=== PATIENT | male | born 1995 ===

== ENCOUNTER 2017-01-03 18:59 | Emergency (ER) | payer SELFPAY ==
--- NOTE | 2017-01-03 21:06 | Emergency Department Report ---
- General Chief complaint: Wound/Laceration Stated complaint: RT HAND LACERATION Time Seen by Provider: 01/03/17 21:05 Source: patient, family Mode of arrival: Ambulatory Limitations: No Limitations - History of Present Illness Initial comments: Patient here states he agrees that received a puncture wound to his right hand between his thumb and second finger from a kitchen appliance. He reports bleeding he controls with dressing. Reports pain 10 out of 10 laceration site. He reports he pulled object out and there was no part of object broken off. Denies numbness or tingling. Denies any radiation of pain to his wrist forearm or arm. When asked, he is able to move all his fingers without any difficulties. He is with his mom and the boat report tetanus shot is up-to- date less than 5 years. MD complaint: laceration -: This evening Tetanus Up to Date: yes Location: R hand Severity: severe Severity scale (0 -10): 10 Quality: stabbing Consistency: intermittent Improves with: immobilization Worsens with: palpation, movement Context: other (accidental injury) Associated symptoms: athralgias Treatments Prior to Arrival: bandages - Related Data Previous Rx's Medication Instructions Recorded Last Taken Type Acetaminophen/Codeine [Tylenol #3] 1 tab PO Q6H PRN #14 tab 01/03/17 Unknown Rx Cephalexin [Keflex] 500 mg PO Q8HR #15 cap 01/03/17 Unknown Rx Ibuprofen [Motrin] 600 mg PO Q8H PRN #15 tablet 01/03/17 Unknown Rx Allergies Allergy/AdvReac Type Severity Reaction Status Date / Time No Known Allergies Allergy Unverified 01/03/17 19:07 Abscess Boil HPI - HPI Chief Complaint: Wound/Laceration Stated Complaint: RT HAND LACERATION Time Seen by Provider: 01/03/17 21:05 Home Medications: Previous Rx's Medication Instructions Recorded Last Taken Type Acetaminophen/Codeine [Tylenol #3] 1 tab PO Q6H PRN #14 tab 01/03/17 Unknown Rx Cephalexin [Keflex] 500 mg PO Q8HR #15 cap 01/03/17 Unknown Rx Ibuprofen [Motrin] 600 mg PO Q8H PRN #15 tablet 01/03/17 Unknown Rx Allergies/Adverse Reactions: Allergies Allergy/AdvReac Type Severity Reaction Status Date / Time No Known Allergies Allergy Unverified 01/03/17 19:07 ED Review of Systems ROS: Stated complaint: RT HAND LACERATION Other details as noted in HPI Comment: All other systems reviewed and negative Constitutional: denies: chills, fever Respiratory: no symptoms reported Cardiovascular: denies: chest pain, palpitations, edema, syncope Gastrointestinal: denies: nausea, vomiting Musculoskeletal: arthralgia. denies: back pain Skin: other (laceration). denies: rash Neurological: denies: headache, weakness, numbness, paresthesias, confusion, abnormal gait, vertigo ED Past Medical Hx - Past Medical History Previous Medical History?: No Hx Asthma: Yes - Surgical History Past Surgical History?: No - Social History Smoking Status: Never Smoker Substance Use Type: None - Medications Home Medications: Home Medications Medication Instructions Recorded Confirmed Last Taken Type Acetaminophen/Codeine [Tylenol #3] 1 tab PO Q6H PRN #14 tab 01/03/17 Unknown Rx Cephalexin [Keflex] 500 mg PO Q8HR #15 cap 01/03/17 Unknown Rx Ibuprofen [Motrin] 600 mg PO Q8H PRN #15 tablet 01/03/17 Unknown Rx ED Physical Exam - General Limitations: No Limitations ED Course Vital Signs 01/03/17 01/03/17 19:03 21:43 Temperature 98.2 F Pulse Rate 69 Respiratory 20 20 Rate Blood Pressure 113/70 O2 Sat by Pulse 100 Oximetry - Laceration /Wound Repair Right Palm Hand Wound Location: upper extremity (right hand between first and second digit.) Wound Length (cm): 2 Wound's Depth, Shape: into muscle, irregular Wound Explored: clean Irrigated w/ Saline (ccs): 250 Betadine Prep?: Yes Anesthesia: 0.5% Sensorcaine Volume Anesthetic (ccs): 12 Wound Debrided: extensive Wound Repaired With: sutures Suture Size/Type: 4:0 (Ethilon) Number of Sutures: 11 Layer Closure?: Yes Deep Layer Suture Size/Type: 5:0, gut, chromic Number Deep Layer Sutures: 2 Sterile Dressing Applied?: Yes (bulky dressing) Critical care attestation.: If time is entered above; I have spent that time in minutes in the direct care of this critically ill patient, excluding procedure time. ED Disposition Clinical Impression: Laceration of right hand without complication, excluding fingers Qualifiers: Encounter type: initial encounter Qualified Code(s): S61.411A - Laceration without foreign body of right hand, initial encounter Injury of right hand Qualifiers: Encounter type: initial encounter Qualified Code(s): S69.91XA - Unspecified injury of right wrist, hand and finger(s), initial encounter Disposition: DISCHARGED TO HOME OR SELFCARE Is pt being admited?: No Does the pt Need Aspirin: No Condition: Stable Instructions: Laceration (ED), Suture Care (ED), Absorbable Suture Care (ED) Additional Instructions: Please return to the emergency room and 7 days to have her stitches removed. Please take antibiotic as prescribed. You can remove dry bulky dressing in 48 hours refrain from strenuous activity see her right hand. If you develop, increased pain, redness, swelling, fever and/or chills or pain extending to her wrist and forearm contusion return to emergency room [facility] Prescriptions: Acetaminophen/Codeine [Tylenol #3] 1 tab PO Q6H PRN #14 tab PRN Reason: Pain Cephalexin [Keflex] 500 mg PO Q8HR #15 cap Ibuprofen [Motrin] 600 mg PO Q8H PRN #15 tablet PRN Reason: Pain Referrals: [facility] [Outside] - 3-5 Days Forms: Accompanied Note, Work/School Release Form(ED)
[2017-01-03] MEDS ORDERED: MARCAINE 0.5% INFILTRATI ONE (21:23)
[2017-01-03] MEDS ORDERED: NACL 0.9% IR ONE (21:23)
[2017-01-03] MEDS ORDERED: NORCO 5/325 PO ONE (21:23)
[2017-01-03 22:51] VITALS: BP 111/69
== END 2017-01-03 22:52 | disposition home or self-care (01) ==
LOC: ED 18:59
DX: S61.411A Laceration without foreign body of right hand, initial encounter (principal); J45.909 Unspecified asthma, uncomplicated; W45.8XXA Other foreign body or object entering through skin, initial encounter; Y93.89 Activity, other specified; Y99.8 Other external cause status; Y92.89 Other specified places as the place of occurrence of the external cause

== ENCOUNTER 2017-01-11 19:49 | Emergency (ER) | payer SELFPAY ==
[2017-01-11 20:42] VITALS: BP 125/89
--- NOTE | 2017-01-11 23:04 | Emergency Department Report ---
HPI - General Chief Complaint: Laceration/Recheck/Suture Time Seen by Provider: 01/11/17 22:57 ED Past Medical Hx - Past Medical History Previous Medical History?: Yes Hx Asthma: Yes - Surgical History Past Surgical History?: No - Social History Smoking Status: Never Smoker Substance Use Type: None - Medications Home Medications: Home Medications Medication Instructions Recorded Confirmed Last Taken Type Acetaminophen/Codeine [Tylenol #3] 1 tab PO Q6H PRN #14 tab 01/03/17 Unknown Rx Cephalexin [Keflex] 500 mg PO Q8HR #15 cap 01/03/17 Unknown Rx Ibuprofen [Motrin] 600 mg PO Q8H PRN #15 tablet 01/03/17 Unknown Rx ED Review of Systems ROS: Stated complaint: GAUZE CHANGE Other details as noted in HPI Physical Exam - Physical Exam Vital Signs: Vital Signs 01/11/17 20:39 Temperature 98.4 F Pulse Rate 60 Respiratory 18 Rate Blood Pressure 125/89 O2 Sat by Pulse 99 Oximetry ED Course Vital Signs 01/11/17 20:39 Temperature 98.4 F Pulse Rate 60 Respiratory 18 Rate Blood Pressure 125/89 O2 Sat by Pulse 99 Oximetry Critical care attestation.: If time is entered above; I have spent that time in minutes in the direct care of this critically ill patient, excluding procedure time. ED Disposition Condition: Stable
[2017-01-11] MEDS ORDERED: TRIPLE ANTIBIOTIC TP ONE (23:39)
[2017-01-11] MEDS ORDERED: MOTRIN PO ONE (23:40)
--- NOTE | 2017-01-11 23:45 | Emergency Department Report ---
HPI - General Chief Complaint: Laceration/Recheck/Suture Time Seen by Provider: 01/11/17 22:57 - HPI HPI: 21-year-old male presents with suture to have his sutures looked at and redressed. Patient is also complaining of pain and discharge and blood in his urine 2 weeks. Patient states about a month ago he had unprotected intercourse with a girl a girl. Patient states since then he started to feel some discharge but has not been checked. Patient states he's been having processes looking discharge as well as painful urination. Patient denies penile pain scrotum pain, fever, chills, nausea, vomiting, abdominal pain or any problems. ED Past Medical Hx - Past Medical History Previous Medical History?: Yes Hx Asthma: Yes - Surgical History Past Surgical History?: No - Social History Smoking Status: Never Smoker Substance Use Type: None - Medications Home Medications: Home Medications Medication Instructions Recorded Confirmed Last Taken Type Acetaminophen/Codeine [Tylenol #3] 1 tab PO Q6H PRN #14 tab 01/03/17 Unknown Rx Cephalexin [Keflex] 500 mg PO Q8HR #15 cap 01/03/17 Unknown Rx Ibuprofen [Motrin 600 MG tab] 600 mg PO Q8H PRN #15 tablet 01/12/17 Unknown Rx Sulfamethoxazole/Trimethoprim 1 each PO BID #14 tablet 01/12/17 Unknown Rx [Bactrim DS TAB] ED Review of Systems ROS: Stated complaint: GAUZE CHANGE Other details as noted in HPI Comment: All other systems reviewed and negative Constitutional: denies: chills, fever Eyes: denies: eye pain, eye discharge, vision change ENT: denies: ear pain, throat pain Respiratory: denies: cough, shortness of breath, wheezing Cardiovascular: denies: chest pain, palpitations Endocrine: no symptoms reported Gastrointestinal: denies: abdominal pain, nausea, vomiting, diarrhea Genitourinary: dysuria, hematuria, discharge. denies: urgency, frequency, testicular pain, testicular mass Musculoskeletal: denies: back pain, joint swelling, arthralgia Skin: denies: rash, lesions Neurological: denies: headache, weakness, paresthesias Psychiatric: denies: anxiety, depression Hematological/Lymphatic: denies: easy bleeding, easy bruising Physical Exam - Physical Exam Vital Signs: Vital Signs 01/11/17 20:39 Temperature 98.4 F Pulse Rate 60 Respiratory 18 Rate Blood Pressure 125/89 O2 Sat by Pulse 99 Oximetry Physical Exam: GENERAL: Alert and oriented x3, no apparent distress, Normal Gait, atraumatic. HEAD: Head is normocephalic and a-traumatic. EYES: Extra ocular muscles are intact. Pupils are equal, round, and reactive to light and accommodation. EARS: symetrical, atraumatic, non tender, ear canal clear and moderate cerumen, tympanic membrance non inflamed. gross auditory nml bilaterally. NOSE: Nose symetrical, Nontender,Nares appeared normal. MOUTH:Mouth is well hydrated and without lesions. Patent airways. NECK: Supple. Non edematous, No carotid bruits. No lymphadenopathy or thyromegaly. LUNGS: Symetrical with respiration, No wheezing, no rales or crackles, CTAB. HEART: S1, S2 present, regular rate and rhythm without murmur, no rubs, no gallops. ABDOMEN: No organomegaly was noted,Positive bowel sounds, soft, and non- distended. . Nontender to palpation on all Quadrants, NO CVA tenderness. UROGENITAL: No scrotal mass, Scrotum non tender to palpation bilaterally, no hernia, no scars or penile discharge. EXTREMITIES/MUSCULOSKELETAL: No cyanosis, clubbing, rash, lesions or edema. Full ROM bilaterally. SKIN: Warm and dry, No lesions, No ulceration or induration present. Hand: Most cool fluids and dressing from hand. 4 x 4 gauze pads removed from laceration. Sutures intact with an area of pus drainage. ED Course Vital Signs 01/11/17 20:39 Temperature 98.4 F Pulse Rate 60 Respiratory 18 Rate Blood Pressure 125/89 O2 Sat by Pulse 99 Oximetry ED Medical Decision Making - Medical Decision Making 21-year-old male presents for a urinary tract infection. ED course: Patient received oral dose of Motrin and suture versus redressed. Sutures are not ready to be taken now and will be taken out next week. Sutured laceration was cleaned and dressed with topical antibiotic Discussed this with patient to return to ED for suture removal. Urinalysis shows positive bacteria, increased WBC. Discussed findings with patient and his mother. Patient will be treated empirically for STD exposure and will be sent home on antibiotics for a urinary tract infection. Discussed the child to follow up with heading pinner or family care doctor. Discussed with patient to take medication as prescribed. Both patient and his mother verbally states to understand and follow up. Discussed the patient no sex for the next 7-10 days while being treated. Critical care attestation.: If time is entered above; I have spent that time in minutes in the direct care of this critically ill patient, excluding procedure time. ED Disposition Clinical Impression: Exposure to STD UTI (urinary tract infection) Qualifiers: Urinary tract infection type: acute cystitis Hematuria presence: with hematuria Qualified Code(s): N30.01 - Acute cystitis with hematuria Disposition: DISCHARGED TO HOME OR SELFCARE Is pt being admited?: No Does the pt Need Aspirin: No Condition: Stable Instructions: Sexually Transmitted Diseases (ED), Safe Sex (ED), Urinary Tract Infection in Men (ED) Prescriptions: Ibuprofen [Motrin 600 MG tab] 600 mg PO Q8H PRN #15 tablet PRN Reason: Pain Sulfamethoxazole/Trimethoprim [Bactrim DS TAB] 1 each PO BID #14 tablet Referrals: PRIMARY CAREMD [Primary Care Provider] - 3-5 Days CANDACE MORALES MD [Referring] - 3-5 Days ARIANA FINCH MD [Referring] - 3-5 Days [facility] [Outside] - 3-5 Days [facility] [Outside] - 3-5 Days [facility] [Outside] - 3-5 Days Forms: Accompanied Note, Work/School Release Form(ED) Time of Disposition: 00:43
[2017-01-12 00:21] LABS: Bacteria,Urine 1+ /HPF (Negative); Bilirubin,Urine NEG (Negative); Blood,Urine NEG (Negative); Ketones,Urine TR mg/dL (Negative); Leukocyte Esterase,Urine MOD (Negative); Mucus,Urine 3+ /HPF; Nitrite,Urine NEG (Negative); Protein,Urine <15 mg/dL mg/dL (Negative)
[2017-01-12] MEDS ORDERED: ROCEPHIN IM ONE (00:41)
[2017-01-12] MEDS ORDERED: XYLOCAINE 1% MPF 5 mL INFILTRATI ONE (00:41)
[2017-01-12] MEDS ORDERED: ZITHROMAX PO ONE (00:41)
== END 2017-01-12 01:40 | disposition home or self-care (01) ==
LOC: ED 19:49
DX: N30.01 Acute cystitis with hematuria (principal); J45.909 Unspecified asthma, uncomplicated; Z20.2 Contact with and (suspected) exposure to infections with a predominantly sexual mode of transmission
CPT/HCPCS: 81001; 96372; 99283; J0696; A6250

== ENCOUNTER 2017-03-01 09:45 | Emergency (ER) | payer SELFPAY ==
[2017-03-01 10:21] VITALS: BP 128/70
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
== END 2017-03-01 10:45 | disposition home or self-care (01) ==
LOC: ED 09:45
DX: S70.01XA Contusion of right hip, initial encounter (principal); J45.909 Unspecified asthma, uncomplicated; V49.49XA Driver injured in collision with other motor vehicles in traffic accident, initial encounter; Y93.9 Activity, unspecified; Y92.9 Unspecified place or not applicable; Y99.9 Unspecified external cause status
CPT/HCPCS: 99281